=== PATIENT | male | born 1945 | race Caucasian/White ===

== ENCOUNTER → 2016-12-02 | Outpatient (CLI) | payer MEDICARE, OTHER ==
--- NOTE | 2016-12-02 11:37 | RADRPT ---
PROCEDURE: Ultrasound of the left lower extremity venous system. CLINICAL INDICATION: Left leg pain and swelling, deep venous thrombosis TECHNIQUE: Nieves scale with and without compression, color doppler, spectral doppler of the venous system of the left lower extremity was performed. Venous augmentation maneuvers were utilized. COMPARISON: No prior studies are available for comparison. FINDINGS: Common femoral vein: Patent. Femoral vein: Patent. Popliteal vein: Patent. Calf veins: Patent. No soft tissue abnormalities are identified. IMPRESSION: No evidence of a deep vein thrombosis within the left lower extremity. RPTAT: AADD .Frantz Pennington MD, MD Date Time Electronically viewed and signed by .Frantz Pennington MD, on 12/02/2016 11:37 .B/
--- NOTE | 2016-12-02 14:08 | RADRPT ---
PROCEDURE: XR Left Ankle. CLINICAL INDICATION: Trauma. Left ankle pain. TECHNIQUE: 3 views. Frontal, lateral, and oblique. COMPARISON: None. FINDINGS: There is no fracture or dislocation. There is lateral soft tissue swelling. Vascular calcifications are present consistent with atherosc lerosis. Articular surfaces are intact. There is no lytic or blastic lesion. There is no radiopaque foreign body. IMPRESSION: 1. Lateral soft tissue swelling. 2. Atherosclerosis. 3. Otherwise unremarkable images of the left ankle. RPTAT: QQ .David Castro MD, MD Date Time Electronically viewed and signed by .David Castro MD, MD on 12/02/2016 14:08 .R/
--- NOTE | 2016-12-02 14:08 | RADRPT ---
PROCEDURE: XR Left Foot. CLINICAL INDICATION: Trauma. Left foot pain. TECHNIQUE: Three views. Frontal, lateral, and oblique. COMPARISON: None. FINDINGS: There is no fracture or dislocation. The soft tissues are normal. Articular surfaces are intact. There is no lytic or blastic lesion. There is no radiopaque foreign body. IMPRESSION: 1. Normal images of the left foot. RPTAT: QQ .David Castro MD, MD Date Time Electronically viewed and signed by .David Castro MD, on 12/02/2016 14:07 .R/
--- NOTE | 2016-12-02 14:10 | RADRPT ---
PROCEDURE: Left knee radiographs. CLINICAL INDICATION: Trauma. Left knee pain. TECHNIQUE: Three views. Frontal, lateral, and patellar view. COMPARISON: No prior studies are available for comparison. FINDINGS: There is no fracture or dislocation. The soft tissues are normal. There are degenerative changes with osteophytes arising from all 3 joint compartment margins. There is no joint space narrowing or deformity. There is no lytic or blastic lesion. There is no radiopaque foreign body. IMPRESSION: 1. Mild degenerative changes of the left knee. 2. Otherwise unremarkable study. RPTAT: QQ .David Castro MD, MD Date Time Electronically viewed and signed by .David Castro MD, on 12/02/2016 14:10 .R/
== END | disposition home or self-care (01) ==
LOC: RAD 10:19
DX: S92.902A Unspecified fracture of left foot, initial encounter for closed fracture (principal); S82.892A Other fracture of left lower leg, initial encounter for closed fracture; S82.002A Unspecified fracture of left patella, initial encounter for closed fracture; X58.XXXA Exposure to other specified factors, initial encounter; I82.4Z2 Acute embolism and thrombosis of unspecified deep veins of left distal lower extremity
CPT/HCPCS: 73562; 73610; 93971